=== PATIENT | male | born 1960 | race Hispanic/Latino ===

== ENCOUNTER 2023-05-25 05:40 | Day surgery (SDC) | payer OTHER ==
[~2023-05-25] VITALS: Ht 180.3 cm; Wt 97.2 kg
[~2023-05-25 05:40] MED LIST: DICLOFENAC SODI50 GM TOP; FLONASE ALLERG9.9 ML NAS; OMEPRAZOLE20 MG PO; ROSUVASTATIN CA10 MG PO
[2023-05-25 06:08] VITALS: BP 129/75
[2023-05-25] MEDS ORDERED: SUCRALFATE1 GM PO (06:19)
--- NOTE | 2023-05-25 07:23 | NUR ---
ROUNDS. PT GONE FOR PROCEDURE. PROVIDED PRAYER.
[2023-05-25] MEDS ORDERED: XARELTO10 MG PO (08:42)
[2023-05-25] MEDS ORDERED: CEFUROXIME250 MG PO (08:42)
[2023-05-25] MEDS ORDERED: DICLOFENAC SODI75 MG PO (08:42)
[2023-05-25] MEDS ORDERED: OXYCODONE HCL5 MG PO (08:43)
[2023-05-25] MEDS ORDERED: GABAPENTIN300 MG PO (08:43)
--- NOTE | 2023-05-25 09:06 | NUR ---
05/25/23 0906 Makayla Spaulding 0850- PT ARRIVES TO PACU, DROWSY RUBBING AT FACE. O2 AT 6L PER MASK, LR INFUSING TO LH IV. PT DENIES PAIN AND NAUSEA. DRESSING IN PLACE TO RIGHT KNEE, CDI. ALL MONITORS IN PLACE. SEMI PERRY POSITION. 0856- PT SATS REMAIN 99% ON 6L PER MASK, MOVED TO ROOM AIR. PT RESTING INTERMITTENTLY. NO SIGNS OF DISTRESS.
--- NOTE | 2023-05-25 09:15 | NUR ---
PT ARRIVES TO DAY SURGERY UNIT FROM PACU VIA STRETCHER. PT IS A&O X4. PT ON RA W/O2 >90% VIA PULSE OX. PT DAUGHTER IN ROOM TO TRANSLATE FOR PT AT THIS TIME. PT REPORTS NO PAIN, DIZZINESS, NAUSEA, OR SOB. REPORT RECEIVED FROM KOBE DALY W/ AND DAUGHTER AT BEDSIDE. SURGICAL DRESSING C/D/I, NO SIGNS OF BLEEDING AT THIS TIME. ONQ PUMP @ 4, KAIA HOSE, FOOT PUMPS, HEEL PROTECTORS, AND CRYO CUFF IN PLACE AT THIS TIME. VS TAKEN. PT STATES MINIMAL PERIODIC N/T IN LFT FOOT, AND UNABLE TO WIGGLE TOES. SPINAL RIGHT ABOVE KNEES AT THIS TIME. WATER, JELLO, CRACKERS PROVIDED AND PT TOLERATING WITHOUT DIFFICULTY SWALLOWING. CALL LIGHT WITHIN REACH, NO FURTHER NEEDS AT THIS TIME. POST OP DOSE OF TXA STARTED (SEE EMAR).
[2023-05-25 09:22] VITALS: BP 116/71
[2023-05-25 10:15] VITALS: BP 116/79
--- NOTE | 2023-05-25 10:20 | NUR ---
IN PT ROOM FOR ASSESSMENT AND VS. PT IS A&O WATCHING TV AT THIS TIME, NO FAMILY AT BEDSIDE. PT REPORTS NO PAIN OR NAUSEA AT THIS TIME. NO ACUTE CHANGES FROM PREVIOUS DRESSING CHANGE. VS TAKEN. PT HAS CONSUMED 3/4 OF WATER AND ALL OF JELLO, APPLESAUCE, FEW CRACKERS WITHOUT DIFFICULTY. CRYO CUFF, ONQ PUMP @ 4, HEEL PROTECTORS, FOOT PUMPS, KAIA HOSE REMAIN IN PLACE. CALL LIGHT WITHIN REACH, PT REPORTS NO FURTHER NEEDS AT THIS TIME.
[2023-05-25 11:15] VITALS: BP 131/81
--- NOTE | 2023-05-25 11:20 | NUR ---
IN PT ROOM FOR VS AND ASSESSMENT. NO ACUTE CHANGES FROM PREVIOUS SURGICAL SITE ASSESSMENT. PT REPORTS PAIN HAS INCREASED TO 5/10 ON BACK OF KNEE AND HE FEELS THOUGH ITS FROM KEEPING IT STRAIGHT, ICE PACK MOVED TO BACK OF KNEE. PT REPORTS HE DOES NOT WANT PRN PAIN MED AT THIS TIME. LUNCH ORDER TAKEN. VS TAKEN. FAMILY AT BEDSIDE. PT REPORTS NO FURTHER NEEDS OR QUESTIONS AT THIS TIME, WATER REFILLED. IV SALINE LOCKED. CALL LIGHT WITHIN REACH.
[2023-05-25 12:11] VITALS: BP 131/79
--- NOTE | 2023-05-25 12:18 | NUR ---
IN PT ROOM FOR VS AND ASSESSMENT. NO ACUTE CHANGES FROM PREVIOUS SURGICAL SITE ASSESSMENT. VS TAKEN. PT ATE LUNCH W/OUT DIFFICULTY SWALLOWING AND REPORTS NO NAUSEA. PT REPORTS PAIN ON LATERAL SIDE OF KNEE ABOUT 4/10 AND REQUESTS PRN PAIN MED BUT WOULD NOT LIKE OPIOID, TORADOL GIVEN (SEE EMAR). PT IN ROOM AT THIS TIME. CALL LIGHT WITHIN REACH, NO FURTHER NEEDS AT THIS TIME.
--- NOTE | 2023-05-25 13:10 | NUR ---
PT RESTING W/EYES CLOSED. RESPIRATIONS ARE EVEN AND UNLABORED, NO SIGNS OF DISTRESS.
--- NOTE | 2023-05-25 13:19 | OR ---
[facility] [address] [place], [place] [address] Signed DATE OF OPERATION: 05/25/2023 SURGEON: Stoney Baptiste MD PREOPERATIVE DIAGNOSIS: Severe DJD, right knee. POSTOPERATIVE DIAGNOSIS: Severe DJD, right knee. PROCEDURE PERFORMED: Right total knee arthroplasty with Santiago. ASSOCIATE MARKETING MANAGER: Leida Frazier PA-C. Leida was present and critical for all portions of procedure. ANESTHESIA: Spinal. BLOOD LOSS: 175 mL. TOURNIQUET TIME: Zero. IMPLANTS: Miguel Triathlon 6/5 with an 11 mm polyethylene and 38 mm patella. BRIEF HISTORY: Mele is a 63-year-old gentleman with progressive worsening of osteoarthritis with a slight flexion contracture. Risks and benefits of operative treatment were discussed with him and he elected to proceed. DESCRIPTION OF PROCEDURE: Once consent was obtained, he was taken to the operating room. After adequate anesthesia, he was placed on the operating room table and all downside pressure points were well padded. The right leg was prepped and draped in a standard sterile fashion. The leg was approached through a standard anterior midline incision, carried through the skin and subcutaneous tissue. Midvastus arthrotomy was then performed and the MCL was Electronically Signed By: STONEY BAPTISTE MD 05/25/23 1319 PATIENT NAME: MELE HOUSE OPERATIVE REPORT DATE OF : 62 REPORT #: [id number] PHYSICIAN: STONEY BAPTISTE MD PCP: NO PRIMARY CARE PHYSICIAN REPORT IS CONFIDENTIAL AND NOT TO BE RELEASED WITHOUT AUTHORIZATION [facility] [address] [place], [place] [address] Signed elevated as a sleeve around the posteromedial corner. The infrapatellar fat pad was excised and the anterior horns of the menisci were transected. The ACL was transected. The navigation guides were then placed in the medial femoral condyle and proximal tibia. The leg was then registered with the computer followed by the fine anatomic points of the knee. The varus and valgus testing was undertaken. There was significant varus contracture and the implant positioning was adjusted accordingly. The robot was then brought in and 4 straight cuts and 2 angle cuts were made with care taken to protect the patellar tendon and MCL. The bony remnants were then removed as were any remaining osteophytes. The trials were then positioned. The knee was taken through range of motion and found to be good. There was excellent stability. The patella was cut sized and drilled for a 38 mm patella. The distal femoral drill holes were finished and proximal tibia was finished with keel punch and drill holes. He had excellent bone quality, so a noncemented prosthesis was selected. The knee was copiously irrigated with Surgiphor followed by normal saline. The tibia was impacted in position first followed by the polyethylene. The femur was then impacted, the knee was extended and loaded. Patella was clamped into position and compressed. The patellar tracking showed excellent tracking. The knee was stable throughout the range of motion. The wound was then irrigated some more. The periarticular soft tissues were injected with a total 100 mL of ropivacaine and Toradol mixture. The On-Q pain pump was percutaneously placed into the adductor canal. The arthrotomy was then closed using #2 Stratafix followed by #2 FiberWire. The subcutaneous tissue was closed with 0 Stratafix and the skin with 3-0 Stratafix. The wound was sealed with LiquiBand and Steri-Strips. The wound was dressed with Acticoat-7 dressing, ABDs and Elkin wrap. He tolerated the procedure well. All sponge, needle, and instrument counts were correct. Stoney Baptiste MD BA/MODL /[id number] Copies: ~ Electronically Signed By: STONEY BAPTISTE MD 05/25/23 1319 PATIENT NAME: MELE HOUSE OPERATIVE REPORT DATE OF : 62 REPORT #: [id number] PHYSICIAN: STONEY BAPTISTE MD PCP: NO PRIMARY CARE PHYSICIAN REPORT IS CONFIDENTIAL AND NOT TO BE RELEASED WITHOUT AUTHORIZATION
--- NOTE | 2023-05-25 13:40 | NUR ---
IN ROOM D/T PT ACCIDENTALLY PRESSING CALL LIGHT. PT STATES PAIN HAS REDUCED TO 2 OR 3/10 AND STATES THIS IS TOLERABLE AT THIS TIME. CALL LIGHT WITHIN REACH, NO FURTHER NEEDS AT THIS TIME.
--- NOTE | 2023-05-25 13:52 | NUR ---
PHYSICAL THERAPY IN ROOM W/PT AND PT AT THIS TIME. LEAD BURNER HELPER AT BEDSIDE VIA IPAD FOR VERBAL INTERPRETATION AND COMMUNICATION W/PT.
--- NOTE | 2023-05-25 14:39 | NUR ---
PT BACK TO UNIT FROM WORKING W/PHYSICAL THERAPY.
--- NOTE | 2023-05-25 14:49 | NUR ---
CALLED DR. QUINONEZ D/T PT REPORTED PAIN 07/04 AND STATES THIS IS TOLERABLE. SURGICAL SITE ASSESSMENT HAS NO NEW EVIDENCE OF BLEEDING OR SHADOWING. AFTER CRISTIANO UPDATED ON PT CONDITION, VERBAL ORDER FOR DISCHARGE RECEIVED. PT AND PT NOTIFIED AND GETTING DRESSED AT THIS TIME. CALL LIGHT WITHIN REACH.
[2023-05-25 15:00] VITALS: BP 131/81
--- NOTE | 2023-05-25 15:02 | NUR ---
IN PT ROOM FOR DISCHARGE EDUCATION. AT BEDSIDE W/2 MEN THAT WILL TRANSPORT PT HOME. INTERPRETOR SERVICES USED VIA IPAD. PT AND PT STATE VERBAL UNDERSTANDING TO DISCHARGE EDUCATION AND NO FURTHER QUESTIONS AT THIS TIME. PT OFF OF UNIT VIA WC TO BACKSEAT OF TRUCK VIA STANDBY ASSIST. ALL BELONGINGS IN PT POSSESSION AT THIS TIME. PT AND PT REPORT NO FURTHER NEEDS AT THIS TIME.
== END 2023-05-25 15:25 | disposition home or self-care (01) ==
LOC: DS 05:40
PROVIDERS: ATTEND Specialist
PROC: 0SRC0JZ Replacement of Right Knee Joint with Synthetic Substitute, Open Approach (ICD-10-PCS; principal; 2023-05-25 07:00)
DX: M17.0 Bilateral primary osteoarthritis of knee (principal); E78.00 Pure hypercholesterolemia, unspecified
CPT/HCPCS: 01400; 64447; 64450; 76942; 97161; A9270; C1713; C1776; J0690; J1100; J1885; J2001; J2250; J2405; J2704; J2795; J7121; J7999

== ENCOUNTER 2023-12-21 08:30 | Day surgery (SDC) | payer BC, OTHER ==
[2023-12-15 15:59] VITALS: BP 119/76
[~2023-12-21] VITALS: Ht 180.3 cm; Wt 100.0 kg
[~2023-12-21 08:30] MED LIST changes: +CEFAZOLIN SODIUM 2 GM/20 ML SYR IV SCH; +CEFUROXIME250 MG PO; +DICLOFENAC SODI75 MG PO; +GABAPENTIN 600 MG TAB PO SCH; +GABAPENTIN300 MG PO; +IBLOOD GLUCOSE TEST STRIP 1 EA TEST VI PRN; +INTRA-ARTICULAR ANALGESIC INJECTION XX SCH; +LACTATED RINGER'S 1,000 ML IV SCH; +LIDOCAINE HCL 1% 5 ML SDV INJ ONE; +MAGNESIUM100 MG PO; +OXYCODONE HCL 5 MG TAB PO SCH; +OXYCODONE HCL5 MG PO; +PANTOPRAZOLE SODIUM 40 MG TABEC PO SCH; +ROPIVACAINE IN 0.9% SOD CHL/PF 545 ML ELS.PMP.HR IRRIGATION SCH; +Ropivacaine HCl 20 MG/10 ML AMP ONE; +SODIUM CHLORIDE 0.9% 500 ML IV ONE; +SUCRALFATE1 GM PO; +TRANEXAMIC ACID 2,000 MG in SODIUM CHLORIDE 0.9% 100 ML IV SCH; +VAZALORE325 MG PO; +XARELTO10 MG PO; +ondansetron HCL 4 MG TAB PO SCH
[2023-12-21 09:01] VITALS: BP 116/80
[2023-12-21] MEDS ORDERED: dexmedeTOMIDine HCl 200 MCG/2 ML VIAL ONE (10:16)
[2023-12-21] MEDS ORDERED: DEXAMETHASONE SOD PHOS 4 MG/ML VIAL ONE (10:16)
[2023-12-21] MEDS ORDERED: MIDAZOLAM HCL 2 MG/2 ML VIAL ONE (10:16)
[2023-12-21] MEDS ORDERED: LIDOCAINE HCL 2% 5 ML SDV ONE ×2 (10:16→11:06)
[2023-12-21] MEDS ORDERED: SODIUM CHLORIDE 0.9% 20 ML IV ONE (10:17)
[2023-12-21] MEDS ORDERED: Ropivacaine HCl 0.5% 30 ML VIAL ONE (10:17)
[2023-12-21] MEDS ORDERED: KETOROLAC TROMETHAMINE 30 MG/ML VIAL IV PRN (11:00)
[2023-12-21] MEDS ORDERED: OXYCODONE HCL 5 MG TAB PO PRN (11:00)
[2023-12-21] MEDS ORDERED: propofoL 200 MG/20 ML VIAL ONE ×3 (11:06→12:31)
[2023-12-21] MEDS ORDERED: XARELTO10 MG PO (12:35)
[2023-12-21] MEDS ORDERED: DICLOFENAC SODI75 MG PO (12:36)
[2023-12-21] MEDS ORDERED: OXYCODONE HCL5 MG PO (12:36)
[2023-12-21] MEDS ORDERED: ACETAMINOPHEN500 MG PO (12:36)
[2023-12-21] MEDS ORDERED: CEFUROXIME500 MG PO (12:36)
[2023-12-21] MEDS ORDERED: GABAPENTIN300 MG PO (12:36)
[2023-12-21] MEDS ORDERED: KETOROLAC TROMETHAMINE 30 MG/ML VIAL ONE (12:44)
[2023-12-21 13:10] VITALS: BP 124/85
--- NOTE | 2023-12-21 13:26 | NUR ---
CRYOCUFF IN PLACE TO LEFT KNEE
--- NOTE | 2023-12-21 13:26 | NUR ---
PATIENT RETURNES FROM PACU. REPORT RECEIVED FROM KOBE. PATIENT AWAKE AND ORIENTED. ON ROOM AIR. BANDAGE IN PLACE TO LEFT KNEE. PATIENT ONLY COMPLAINING OF SOME THROAT DRYNESS. WATER AND CRACKERS GIVEN TO PATIENT. DENIES NAUSEA. FEELING NUMBNESS TO THE KNEES AND BELOW. VITAL SINGS WITHIN NORMAL LIMITS. KAIA HOSE AND COMPRESSION BOOTS IN PLACE.
--- NOTE | 2023-12-21 13:34 | OR ---
[facility] [address] [place], [place] [address] Signed DATE OF OPERATION: 12/21/2023 SURGEON: Stoney Baptiste MD PREOPERATIVE DIAGNOSIS: Severe degenerative joint disease, left knee. POSTOPERATIVE DIAGNOSIS: Severe degenerative joint disease, left knee. PROCEDURE PERFORMED: Left total knee arthroplasty with Santiago. COTTON BREEDER: Leida Frazier PA-C. Leida was present and critical for all portions of procedure. ANESTHESIA: Spinal. BLOOD LOSS: 175 mL. IMPLANTS: Miguel Triathlon size 5, 10 mm polyethylene, 35 mm patella. BRIEF HISTORY: Mele is a 63-year-old gentleman with progressive worsening of osteoarthritis. He had undergone right total knee with good results, wished to proceed with the left. Risks, benefits, and alternatives of surgery were discussed with him and he elected to proceed. DESCRIPTION OF PROCEDURE: Once consent was obtained, he was taken to the operating room. After adequate anesthesia, he was placed on the operating table on the left hip bump. The leg was prepped and draped in a standard sterile fashion. The knee was approached through standard anterior midline incision. The incision was carried down to the fascia. Skin flaps were developed medially and laterally. The low mid vastus arthrotomy was performed and all bleeders were cauterized as we went. The MCL was elevated as a sleeve around the posteromedial corner. The infrapatellar fat pad was excised. The navigation computer arrays were placed in the medial femoral condyle and proximal tibia. The leg Electronically Signed By: STONEY BAPTISTE MD 12/21/23 1334 PATIENT NAME: MELE HOUSE OPERATIVE REPORT DATE OF : 62 REPORT #: [id number] PHYSICIAN: STONEY BAPTISTE MD PCP: NO PRIMARY CARE PHYSICIAN REPORT IS CONFIDENTIAL AND NOT TO BE RELEASED WITHOUT AUTHORIZATION [facility] [address] [place], [place] [address] Signed was then registered with the computer. The fine anatomic points of the knee were then registered. The four ligamentous poses were then taken with adjustments made primarily to add varus to the tibia. Once the ligamentous balance was obtained, the robot was brought in and the four straight cuts and two angled cuts were made. The bony remnants were removed as were any remaining osteophytes. The posterior osteophytes removed off the femur. The femoral and tibial trials were then positioned, the knee was taken from 0 to 120 degrees with good stability. The patella was cut sized and drilled for a 35 mm patella, and the patella was noted to track well. The distal femoral drill holes were completed as was the cruciate punch for the tibia, followed by the drill holes for the tibia. His bone quality was excellent. The implants were obtained. The tibia was impacted into position first, followed by the polyethylene. The femur was impacted and the knee was extended and loaded. The patella was clamped into position until it was fully seated. The clamp was removed. Again, patellar tracking was excellent on range of motion. The knee was then copiously irrigated with one bottle of Surgiphor, followed by normal saline. The On-Q pain pump was percutaneously placed into the adductor canal from the suprapatellar pouch. The arthrotomy was then closed using a combination of #2 FiberWire and #2 StrataFix, 0-StrataFix to the subcutaneous tissue and 3-0 StrataFix for the skin. The wound was sealed with LiquiBand and Steri-Strips. The wound was then dressed with Acticoat-7 dressing, ABD, and Elkin wrap. He tolerated the procedure well. All sponge, needle, and instrument counts were correct. Stoney Baptiste MD BA/MODL /[id number] Copies: ~ Electronically Signed By: STONEY BAPTISTE MD 12/21/23 1334 PATIENT NAME: MELE HOUSE OPERATIVE REPORT DATE OF : 62 REPORT #: [id number] PHYSICIAN: STONEY BAPTISTE MD PCP: NO PRIMARY CARE PHYSICIAN REPORT IS CONFIDENTIAL AND NOT TO BE RELEASED WITHOUT AUTHORIZATION
--- NOTE | 2023-12-21 13:50 | NUR ---
PATIENT COMPLAINING OF PAIN IN KNEE STATING THAT IT IS ABOUT A 9/10. PAIN IS TO BACK OF THE KNEE. 5MG OXYCODONE GIVEN. ADDITIONAL ICE PACK APPLIED TO BACK OF KNEE FOR PAIN RELIEF. PATIENT STATES THAT NAUSEA IS STILL UNDER CONTROL. DENIES ANY OTHER NEEDS AT THIS TIME.
[2023-12-21] MEDS ORDERED: TRANEXAMIC ACID 2,000 MG in SODIUM CHLORIDE 0.9% 100 ML IV ONE ×2 (14:00→14:01)
[2023-12-21 14:12] VITALS: BP 110/76
--- NOTE | 2023-12-21 14:16 | NUR ---
HOURLY ROUNDING ON PATIENT. STILL REPORTING A 9/10 PAIN LEVEL TO LEFT KNEE. ICE PACK REMOVED FROM BEHIND KNEE. ENCOURAGED PATIENT TO DO TOES TO NOSE/GAS PEDAL EXERCISE TO HELP ALLEVIATE PAIN. VITAL SIGNS OBTAINED AND WNL. PATIENT FEELING NAUSEOUS FROM PAIN BUT HAS NOT THROWN UP. PATIETN STILL FEELING NUMB AROUND ANKLES BILATERALLY. DRESSING, ONQ, AND CRYOCUFF STILL IN PLACE.
[2023-12-21] MEDS ORDERED: GABAPENTIN 300 MG CAP PO SCH (15:00)
[2023-12-21] MEDS ORDERED: ACETAMINOPHEN 500 MG TAB PO SCH (15:00)
[2023-12-21 15:05] VITALS: BP 117/77
--- NOTE | 2023-12-21 15:12 | NUR ---
HOURLY ROUNDING ON PATIENT. PATIENT STILL REPORTING 8/10 PAIN. PAIN MEDICATION ADMINISTERED PER ORDER. VITAL SIGNS OBTAINED AND WDL. RAIZA HAD FIRST POST-OP VOID WITH 825ML OF OUTPUT. PHYSICAL THERAPY CALLED FOR PT EVALUATION. PATIENT AGREEABLE TO ATTEMPT PHYSICAL THERAPY TO TRY TO RELIEVE PAIN FROM HIS KNEE.
--- NOTE | 2023-12-21 15:12 | NUR ---
PATIENT'S SPINAL HAS RESOLVED. PT CALLED FOR EVALUATION
--- NOTE | 2023-12-21 15:22 | NUR ---
PATIENT TAKEN TO PHYSICAL THERAPY BY LUIS FERNANDO AT THIS TIME.
--- NOTE | 2023-12-21 15:40 | NUR ---
PATIENT RETURNS FROM PHYSICAL THERAPY. PHYSICAL THERAPIST REPORTS PATIENT HAS PASSED PT. PATIENT REQUESTING SOMETHING TO EAT. SANDWICH ORDERED.
--- NOTE | 2023-12-21 15:42 | NUR ---
12/21/23 1542 Makayla Spaulding 1247- PT PRESENTS TO PACU, AWAKE. PT CONFUSED ON STATUS AND ATTEMPTS TO GET UP, REORIENTED TO TIME AND PLACE. PT SITTING BACK IN BED. DENIES PAIN AND NAUSEA. LR TKO TO RFA. DRESSING TO LEFT KNEE, CDI. HEELS ELEVATED OFF BED ON TOWEL ROLLS. XRAY CALLED TO PACU. 1255- PT CONTINUES TO DENY PAIN. XRAY TO LEFT KNEE COMPLETED. PT REPOSITIONED IN BED. 1302- CRYOCUFF PLACED TO LEFT KNEE. PT IS ABLE TO ROTATE LEGS BUT UNABLE TO FEEL FEET, WIGGLE TOES OR FLEX FEET. PT DENIES PAIN AND NAUSEA. 1310- PT TAKEN BACK TO DAY SURGERY, REPORT TO JOCY DALY AT BEDSIDE. DRESSING CDI TO LEFT KNEE. CRYO CUFF REMAINS IN PLACE. LR TKO TO RFA IV. PT ALERT AND ORIENTED. NO COMPLAINTS. CARE OF PT TURNED OVER AT THIS TIME.
--- NOTE | 2023-12-21 15:53 | NUR ---
DELIVERED SANDWICH TO PATIENT. PATIENT REPORTING PAIN IS NOW A 4/10.
[2023-12-21] MEDS ORDERED: CEFAZOLIN SODIUM 2 GM/20 ML SYR IV SCH (16:00)
[2023-12-21 16:09] VITALS: BP 95/70
--- NOTE | 2023-12-21 16:20 | NUR ---
PATIENT MEETS ALL DISHCARGE REQUIREMENTS. ABLE TO VOID, PASSED PHYSICAL THERAPY, NAUSEA UNDER CONTROL, EATING AND DRINKING. DR. QUINONEZ CALLED AND GAVE OKAY TO DISCHARGE. THIS RN WENT OVER DISCHARGE INSTRUCTIONS WITH PATIENT AND HIS IN DETAIL. THEY EXPRESSED UNDERSTANDING AND ALL QUESTIONS WERE ANSWRED. FINAL DOSE OF ANCEF GIVEN. VITALS WITHIN NORMAL LIMITS. PATIENT DISCHARGED VIA WHEEL CHAIR WITH HIS RIDE HOME.
[2023-12-21] MEDS ORDERED: SENNOSIDES 1 TAB PO SCH (21:00)
[2023-12-22] MEDS ORDERED: Rivaroxaban 10 MG TAB PO SCH (08:00)
[2023-12-22] MEDS ORDERED: DICLOFENAC SOD 75 MG TABEC PO SCH (08:00)
== END 2023-12-21 16:30 | disposition home or self-care (01) ==
LOC: DS 08:30
PROVIDERS: ATTEND Specialist
PROC: 0SRD0JZ Replacement of Left Knee Joint with Synthetic Substitute, Open Approach (ICD-10-PCS; principal; 2023-12-21 11:30)
DX: M17.12 Unilateral primary osteoarthritis, left knee (principal); E78.00 Pure hypercholesterolemia, unspecified
CPT/HCPCS: 01400; 64447; 64450; 73560; 76942; 97116; 97161; A9270; C1713; C1776; J0690; J1100; J1885; J2001; J2250; J2704; J2795; J7040; J7121; J7999